=== PATIENT | female | born 1990 | race Caucasian/White ===

== ENCOUNTER → 2024-07-23 | Outpatient (CLI) | payer BC | END | disposition home or self-care (01) | LOC: LABWHC1 16:13 | PROVIDERS: ATTEND Dermatology MOHS-Micrographic Surgery | DX: I73.00 Raynaud's syndrome without gangrene (principal); L74.513 Primary focal hyperhidrosis, soles; L74.512 Primary focal hyperhidrosis, palms | CPT/HCPCS: 36415; 86038 ==